=== PATIENT | male | born 1940 | race Caucasian/White ===

== ENCOUNTER → 2018-03-13 | Outpatient (CLI) | payer MEDICARE, OTHER ==
[~2018-03-13] VITALS: Ht 172.7 cm; Wt 81.6 kg
[~2018-03-13] MED LIST: ADULT LOW DOSE81 MG PO; ATORVASTATIN CA10 MG PO; CALCIUM-MAGNES1 EA10 PO; CARVEDILOL12.5 MG PO; COUMADIN 5 MG TA5 M1 PO; COZAAR 25 MG TA25 M2 PO; ENOXAPARIN80 MG/0.8 SUBQ; FISH OIL 1,4001 EACH; FISH OIL 1,4001 EACH PO; KEFLEX500 M1 PO; MEN'S 50+ ADVA1 EACH PO; RANITIDINE 150150 M1 PO; VITCB500GO PO
[2018-03-13 12:08] LABS: HEMATOCRIT 39.4 % (42.0-52.0); HEMOGLOBIN 13.1 gm/dL (14.0-18.0); MCH 30.5 pg (26.0-34.0); MCHC 33.3 g/dL (28.0-37.0); MCV 91.4 fL (80.0-100.0); MPV 8.1 fl. (7.2-11.1); RBC 4.31 mil/uL (4.50-6.00); RDW-CV 15.2 % (10.5-14.5); WBC 7.8 thou/uL (4.0-11.0)
[2018-03-13 12:16] VITALS: BP 108/61
[2018-03-13 12:17] LABS: CALCIUM 8.7 mg/dL (8.5-10.1); CREATININE 1.1 mg/dL (0.6-1.3); POTASSIUM 4.3 mmol/L (3.5-5.1)
[2018-03-13 12:19] LABS: APTT 34.5 Seconds (25.0-31.3); INR 2.2; PROTIME 21.3 Seconds (9.20-11.50)
[2018-03-13 12:22] LABS: ALBUMIN 3.3 g/dL (3.4-5.0); TOTAL BILIRUBIN 0.6 mg/dL (<0.1-1.0); TOTAL PROTEIN 7.1 g/dL (6.4-8.2)
[2018-03-13 15:15] VITALS: BP 96/62
[2018-03-13 15:30] VITALS: BP 110/52
[2018-03-13 15:45] VITALS: BP 102/52
[2018-03-13 16:00] VITALS: BP 115/59
[2018-03-13 16:30] VITALS: BP 115/59
--- NOTE | 2018-03-20 17:45 | CARD ---
[address] [address] CARDIAC CATH REPORT Name: ALEXIA ERWIN [id number] Admission: 03/13/18 Attend Phys: Ej Kraft MD Discharge: Date of : 38 Report #: [id number] THIS REPORT FOR: //name// ADDENDUM APPROVED REPORT Study performed: 03/13/2018 13:25:55 Patient Status: OP Room #: Event Personnel: Laureano Francisco Haley, Angela (R) Monitor, Cha Muniz RN RN, Ej Kraft Lab Aid Exam: ICD generator change for generator at elective replacement. Indications: primary prevention. The patient is a 77 year-old male with a history of nonischemic cardiomyopathy.. Intraoperative Conscious Sedation Sedation start time: 13:55 Case end Time: 14:26 Fentanyl 50 mcg Versed 2 mg Implanted Devices: Biotronik Itrevia 7 DR-T DF-1, model #855669, serial #[id number] pulse generator. Explanted Devices: Medtronic Protecta XT DR, model #3314 DRG, serial number [id number] pulse generator. Procedure After informed consent was obtained the patient was brought to the interventional radiology lab. The area of the left chest was prepped and draped in sterile fashion. Local anesthesia was achieved with 1% lidocaine. Next after an initial incision was made over the existing pulse generator the generator was explanted using electrocautery and blunt dissection. The atrial and RV pacing defibrillator lead were checked and deemed to be satisfactory. There was adequate sensing and thresholds. The impedances were stable. The device pocket was then flushed with antibiotic solution. The atrial and RV pacing and defibrillator leads were attached to the new generator. The generator and redundant lead were then replaced within the device pocket. The deep tissues were closed with interrupted stitches of 2-0 Vicryl. The skin incision was then closed with a single subcuticular stitch of 4-0 Vicryl. Several Steri-Strips were placed across the incision. A sterile Telfa dressing was then covered [place] [address] CARDIAC CATH REPORT Name: ALEXIA ERWIN Room: [facility]#: [id number] Admission: 03/13/18 Attend Phys: Ej Kraft MD Discharge: Date of : 38 Report #: [id number] Complications The patient tolerated the procedure well and there were no complications associated with the procedure. Conclusion 1. Existing dual-chamber pulse generator explanted. 2. New dual-chamber pacing ICD generator implanted. Recommendations 1. Follow-up for site check in one week. 2. Follow-up for device interrogation in the office in one to 2 months. <ELECTRONICALLY SIGNED> By: Ej Kraft MD, FACC 03/20/18 1744 [id number] Kraft MD, FAC /INF
--- NOTE | 2018-03-26 08:44 | H ---
[facility] [address] [place] [address] HISTORY AND PHYSICAL Name: ALEXIA ERWIN Room: [facility]#: [id number] Admission: 03/13/18 Attend Phys: Ej Kraft MD Discharge: Date of : 38 Report #: [id number] THIS REPORT FOR: //name// CC: Ej Tilley DO REFERRING PHYSICIAN: Dr. Tilley. REASON FOR ADMISSION: Elective ICD generator change. HISTORY OF PRESENT ILLNESS: The patient is a very pleasant 77-year-old gentleman with nonischemic cardiomyopathy. He has a remote history of mechanical mitral valve replacement for severe mitral insufficiency. He is chronically anticoagulated. He has an ICD for primary prevention. His battery has reached elective replacement. PAST MEDICAL HISTORY: 1. Nonischemic cardiomyopathy. 2. Status post mitral valve replacement with mechanical prosthesis for severe mitral insufficiency. 3. Chronic anticoagulation. 4. Hypertension. 5. Hyperlipidemia. PAST SURGICAL HISTORY: 1. Status post ICD placement. 2. Colectomy. 3. Polypectomy. 4. Renal stent placement. 5. Mitral valve replacement as outlined above. 6. Vasectomy. CURRENT MEDICATIONS: Vitamin C 500 mg daily, atorvastatin 10 mg daily, calcium supplement daily, carvedilol 25 mg twice daily, losartan 50 mg daily, magnesium oxide 400 mg daily, multivitamin 1 tablet daily, fish oil 1200 mg daily, Zantac 150 mg daily, Flomax 0.4 mg daily, warfarin as directed for INR, zinc daily. PHYSICAL EXAMINATION: VITAL SIGNS: Stable. Blood pressure is 104/56, pulse 80 and regular. GENERAL: This is a pleasant gentleman in no distress. HEENT: Pupils equally round and reactive to light. Extraocular muscles intact. Mucous membranes are moist. NECK: Shows no jugular venous distention. No carotid bruits. CHEST: Reveals clear lung gil without wheezes or rales. CARDIOVASCULAR: Reveals a regular rhythm. I do [place] [address] HISTORY AND PHYSICAL Name: ALEXIA ERWIN Room: [facility]#: [id number] Admission: 03/13/18 Attend Phys: Ej Kraft MD Discharge: Date of : 38 Report #: [id number] ABDOMEN: Reveals normal bowel sounds. The abdomen is soft and nontender. EXTREMITIES: Shows no edema. Peripheral pulses palpable. SKIN: Warm and dry. IMPRESSION AND RECOMMENDATIONS: 1. Nonischemic cardiomyopathy. 2. Status post ICD placement for primary prevention. 3. ICD generator elective replacement. Plan to replace generator today. 4. Hypertension, well controlled on current medications. 5. Status post mitral valve replacement. The patient chronically anticoagulated with warfarin. 6. Chronic anticoagulant use without bleeding problems. <ELECTRONICALLY SIGNED> By: Ej Kraft MD, [facility] 03/26/18 [address] [place] [address] Estefanía Kraft MD, SIDDHARTH /nt
== END | disposition home or self-care (01) ==
LOC: M.CL 11:38
PROVIDERS: Internal Medicine Cardiovascular Disease
DX: I42.9 Cardiomyopathy, unspecified (principal); Z98.890 Other specified postprocedural states; Z90.49 Acquired absence of other specified parts of digestive tract; Z85.038 Personal history of other malignant neoplasm of large intestine; D64.9 Anemia, unspecified

== ENCOUNTER → 2019-07-23 | Outpatient (CLI) | payer MEDICARE, OTHER ==
--- NOTE | 2019-07-23 16:15 | 2DMMODE ---
[place] [address] 2 D/M-MODE ECHOCARDIOGRAM Name: ALEXIA ERWIN Room: [facility]#: [id number] Admission: 07/23/19 Attend Phys: Ej Kraft, Discharge: Date of : 38 Date of Service: 07/23/19 1615 Report #: [id number] THIS REPORT FOR: //name// APPROVED REPORT Study performed: 07/23/2019 10:50:29 EXAM: Comprehensive 2D, Doppler, and color-flow Echocardiogram Patient Location: Out-Patient BSA: 1.96 HR: 72 bpm BP: 110/68 mmHg Other Information Study Quality: Good Indications Mitral Valve Disease 2D Dimensions IVSd: 11.95 (7-11mm) LVOT Diam: 20.57 (18-24mm) LVDd: 67.26 mm PWd: 10.46 (7-11mm) Ascending Ao: 36.97 (22-36mm) LVDs: 41.70 (25-40mm) Aortic Root: 33.90 mm Volumes Left Atrial Volume (Systole) LA ESV Index: 25.60 mL/m2 Aortic Valve AoV Peak Esteban.: 1.19 m/s AO Peak Gr.: 5.62 mmHg LVOT Max P.37 mmHg AO Mean Gr.: 3.16 mmHg LVOT Mean P.14 mmHg LVOT Max V: 0.77 m/s AO V2 VTI: 23.07 cm LVOT Mean V: 0.49 m/s LENORE (VTI): 2.05 cm2 LVOT V1 VTI: 14.26 cm AI [place]: 1.92 m/s2 AI PHT: 584.46 ms Mitral Valve MV Peak Gr.: 6.84 mmHg MV Mean Gr.: 3.45 mmHg E/A Ratio: 1.30 MV Decel. Time: 254.85 [place] [address] 2 D/M-MODE ECHOCARDIOGRAM Name: ALEXIA ERWIN Room: [facility]#: [id number] Admission: 07/23/19 Attend Phys: Ej Kraft, Discharge: Date of : 38 Date of Service: 07/23/19 1615 Report #: [id number] MV E Max Esteban.: 1.11 m/s MV PHT: 73.91 ms MVA (PHT): 2.98 cm2 TDI E/Lateral E': 11.10 E/Medial E': 12.33 Medial E' Esteban.: 0.09 m/s Lateral E' Esteban.: 0.10 m/s Pulmonary Valve PV Peak Esteban.: 1.23 m/s PV Peak Gr.: 6.04 mmHg Tricuspid Valve RAP Estimate: 5.00 mmHg TR Peak Gr.: 17.03 mmHg RVSP: 22.03 mmHg PA Pressure: 22.03 mmHg Left Ventricle The left ventricle is normal size. There is global hypokinesis. There is left ventricular systolic dyssynergy consistent with underlying bundle branch block or paced rhythm. Additionally the apex and apical septal wall as well as basal inferior leger appear akinetic. Mild concentric left ventricular hypertrophy. Left ventricular systolic function is mild to moderately decreased. LVEF is 35-40%. Transmitral Doppler flow pattern suggests restrictive physiology. Right Ventricle The right ventricle is normal size. The right ventricular systolic function is normal. Pacemaker lead is present in the right ventricle. Atria The left atrium size is normal. ICD lead is present in the right atrium. Aortic Valve The aortic valve is normal in structure. Mild aortic regurgitation. There is no aortic valvular stenosis. Mitral Valve There is a mechanical mitral valve. There is no mitral valve regurgitation noted. No evidence of mitral valve stenosis. Tricuspid Valve The tricuspid valve is normal in structure. Mild tricuspid regurgitation[place] [address] 2 D/M-MODE ECHOCARDIOGRAM Name: ALEXIA ERWIN [id number] Admission: 07/23/19 Attend Phys: Ej Kraft, Discharge: Date of : 38 Date of Service: 07/23/19 1615 Report #: [id number] Pulmonic Valve The pulmonary valve is normal in structure. There is no pulmonic valvular regurgitation. Great Vessels The aortic root is normal in size. IVC is normal in size and collapses >50% with inspiration. Pericardium There is no pericardial effusion. <Conclusion> The left ventricle is normal size. Mild concentric left ventricular hypertrophy. Left ventricular systolic function is mild to moderately decreased. LVEF is 35-40%. Transmitral Doppler flow pattern suggests restrictive physiology. There is global hypokinesis. There is left ventricular systolic dyssynergy consistent with underlying bundle branch block or paced rhythm. Additionally the apex and apical septal wall as well as basal inferior leger appear akinetic. ICD lead is present in the right atrium. Mild aortic regurgitation. There is a mechanical mitral valve. There is no mitral valve regurgitation noted. No evidence of mitral valve stenosis. Mild tricuspid regurgitation. No pulmonary hypertension. The aortic root is normal in size. <ELECTRONICALLY SIGNED> By: Ej Kraft MD, FACC 07/23/19 1615 1615 1615 Ej Kraft MD, FACC /INF
== END ==
LOC: M.CRD 10:50
DX: I08.2 Rheumatic disorders of both aortic and tricuspid valves (principal)

== ENCOUNTER → 2020-10-23 | Outpatient (CLI) | payer MEDICARE, OTHER ==
[2020-10-23 09:33] LABS: INR 2.2; PROTIME 21.9 Seconds (9.20-11.50)
== END ==
LOC: M.LAB 08:59
PROVIDERS: ATTEND Internal Medicine Cardiovascular Disease
DX: I48.0 Paroxysmal atrial fibrillation (principal); Z95.2 Presence of prosthetic heart valve; Z79.01 Long term (current) use of anticoagulants

== ENCOUNTER 2021-01-02 14:40 | Emergency (ER) | payer MEDICARE, OTHER ==
[~2021-01-02] VITALS: Ht 167.6 cm; Wt 81.7 kg
[2021-01-02 15:30] LABS: INFLUENZA A ANTIGEN Negative (Negative); INFLUENZA B ANTIGEN Negative (Negative)
[2021-01-02] MEDS ORDERED: APAP W/CODEINE1 TA2 PO (15:35)
[2021-01-02] MEDS ORDERED: DOXYCYCLINE 10100 MG PO (15:35)
[2021-01-02] MEDS ORDERED: PREDNISONE 20 M20 MG PO (15:35)
[2021-01-02] MEDS ORDERED: PROAIR HFA8.5 GM INH (15:35)
[2021-01-02] MEDS ORDERED: TESSALON PERLE100 MG PO (15:35)
[2021-01-02 15:53] VITALS: BP 103/65
== END 2021-01-02 15:53 | disposition home or self-care (01) ==
LOC: M.ERS 14:40
PROVIDERS: Physician Assistant
DX: U07.1 COVID-19 (principal); Z86.2 Personal history of diseases of the blood and blood-forming organs and certain disorders involving the immune mechanism; Z85.46 Personal history of malignant neoplasm of prostate

== ENCOUNTER → 2021-06-22 | Outpatient (CLI) | payer MEDICARE, OTHER ==
[~2021-06-22] MED LIST changes: +APAP W/CODEINE1 TA2 PO; +DOXYCYCLINE 10100 MG PO; +PREDNISONE 20 M20 MG PO; +PROAIR HFA8.5 GM INH; +TESSALON PERLE100 MG PO
[2021-06-22 09:40] VITALS: BP 110/63
--- NOTE | 2021-06-22 09:54 | NUR ---
PATIENT WAS ATTACHED TO THE HAND CUTTER. IT SHOWED PACED ATRIAL-VENTRICULAR RHYTHM. THEN EKG WAS DONE TO CONFIRM. EKG SHOWED ATRIAL-VENTRICULAR DUAL PACED COMPLEX. NO ATRAIL FIBRILLATION. THEN DID INTERROGATION OF HIS ICD AND HE TOLD THAT PATIENT IS NOT IN ATRIAL FIBRILLATION. SO, CARDIOVERSION WAS NOT DONE.
--- NOTE | 2021-06-22 11:34 | EKG ---
[place] [address] ELECTROCARDIOGRAM REPORT Name: RIPALEXIANIS Room: [facility]#: [id number] Admission: 06/22/21 Attend Phys: Ej Kraft, Discharge: Date of : 38 Date of Service: 06/22/21 0945 Report #: [id number] THIS REPORT FOR: //name// [facility] Test Date: 2021-06-22 Test Time: 09:45:27 Pat Name: ALEXIA ERWIN Department: Room: Gender: [employer]: : 1940 Requested By: Ej Kraft Order Number: [id number] MD: Martin Angulo Measurements Intervals [place] Rate: 69 P: DC: 60 QRS: -86 QRSD: 295 T: 4 QT: 608 QTc: 652 Interpretive Statements Atrial-ventricular dual-paced complexes No further analysis attempted due to paced rhythm Compared to ECG 04/17/2013 08:52:00 Sinus rhythm no longer present Electronically Signed On 06-22-2021 11:34:03 CDT by Martin Angulo [email or web address] <ELECTRONICALLY SIGNED> By: Martni Angulo MD, [facility] 06/22/21 1134 0945 0945 Martin Angulo MD, [facility] /EPI
--- NOTE | 2021-06-22 16:05 | 2DMMODE ---
[place] [address] 2 D/M-MODE ECHOCARDIOGRAM Name: ALEXIA ERWIN Room: [facility]#: [id number] Admission: 06/22/21 Attend Phys: Ej Kraft, Discharge: Date of : 38 Date of Service: 06/22/21 1605 Report #: [id number] THIS REPORT FOR: cc: Krishna Tilley Vincent R. DO [place],Ej José MD [facility] ~ APPROVED REPORT Study performed: 06/22/2021 08:09:37 EXAM: Comprehensive 2D, Doppler, and color-flow Echocardiogram Patient Location: Out-Patient BSA: 1.94 HR: 103 bpm BP: 100/60 mmHg Other Information Study Quality: Good Indications Mitral Valve Disease 2D Dimensions IVSd: 13.62 (7-11mm) LVOT Diam: 20.94 (18-24mm) LVDd: 67.10 mm PWd: 11.78 (7-11mm) Ascending Ao: 34.07 (22-36mm) LVDs: 46.55 (25-40mm) Aortic Root: 37.45 mm Volumes Left Atrial Volume (Systole) LA ESV Index: 33.50 mL/m2 Aortic Valve AoV Peak Esteban.: 1.48 m/s AO Peak Gr.: 8.75 mmHg LVOT Max P.28 mmHg AO Mean Gr.: 5.00 mmHg LVOT Mean P.19 mmHg LVOT Max V: 0.75 m/s AO V2 VTI: 25.17 cm LVOT Mean V: 0.51 m/s LENORE (VTI): 1.93 cm2 LVOT V1 VTI: 14.08 cm AI [place]: 1.59 m/s2 AI PHT: 647.22 [place] [address] 2 D/M-MODE ECHOCARDIOGRAM Name: ALEXIA ERWIN Room: [facility]#: [id number] Admission: 06/22/21 Attend Phys: Ej Kraft, Discharge: Date of : 38 Date of Service: 06/22/21 1605 Report #: [id number] Mitral Valve MV Peak Gr.: 8.75 mmHg MV Mean Gr.: 4.17 mmHg E/A Ratio: 1.41 MV Decel. Time: 232.06 ms MV E Max Esteban.: 1.43 m/s MV PHT: 67.30 ms MVA (PHT): 3.27 cm2 TDI E/Lateral E': 11.92 E/Medial E': 17.88 Medial E' Esteban.: 0.08 m/s Lateral E' Esteban.: 0.12 m/s Pulmonary Valve PV Peak Esteban.: 1.02 m/s PV Peak Gr.: 4.17 mmHg Tricuspid Valve RAP Estimate: 5.00 mmHg TR Peak Gr.: 21.29 mmHg RVSP: 26.29 mmHg PA Pressure: 26.29 mmHg Left Ventricle Left ventricle is dilated. There is significant global hypokinesis. There is left ventricular systolic dyssynergy consistent with underlying paced rhythm. There is normal left ventricular wall thickness. Left ventricular ejection fraction is mild to moderately decreased. LVEF is 25-30%. Transmitral Doppler flow pattern suggests restrictive physiology. Right Ventricle The right ventricle is normal size. The right ventricular systolic function is normal. Pacing defibrillator lead is present in the right ventricle. Atria The left atrium size is normal. Pacing defibrillator lead is present in the right atrium. Aortic Valve The aortic valve is normal in structure. Mild aortic regurgitation. There is no aortic valvular stenosis. Mitral Valve There is a mechanical mitral valve. There is no mitral valve regurgitation noted. No evidence of [place] [address] 2 D/M-MODE ECHOCARDIOGRAM Name: RIPALEXIA [id number] Admission: 06/22/21 Attend Phys: Ej Kraft, Discharge: Date of : 38 Date of Service: 06/22/21 1605 Report #: [id number] Tricuspid Valve The tricuspid valve is normal in structure. Mild tricuspid regurgitation. The RVSP is 30-35 mmHg. Pulmonic Valve The pulmonary valve is normal in structure. Mild pulmonic regurgitation. Great Vessels The aortic root is normal in size. IVC is normal in size and collapses >50% with inspiration. Pericardium There is no pericardial effusion. <Conclusion> Left ventricle is dilated. There is normal left ventricular wall thickness. Left ventricular ejection fraction is mild to moderately decreased. LVEF is 25-30%. Transmitral Doppler flow pattern suggests restrictive physiology. There is significant global hypokinesis. There is left ventricular systolic dyssynergy consistent with underlying paced rhythm. Pacing defibrillator lead is present in the right ventricle. Mild aortic regurgitation. There is a mechanical mitral valve. Mild tricuspid regurgitation. The RVSP is 30-35 mmHg. <ELECTRONICALLY SIGNED> By: Ej Kraft MD, FACC 06/22/21 1605 1605 1605 Ej Kraft MD, FACC /INF
== END ==
LOC: M.CRD 08:26 → M.CL 12:00
PROVIDERS: ATTEND Internal Medicine Cardiovascular Disease
DX: I08.8 Other rheumatic multiple valve diseases (principal); Z95.2 Presence of prosthetic heart valve